=== PATIENT | male | born 1975 | race Caucasian/White ===

== ENCOUNTER 2016-05-19 17:37 | Emergency (ER) | payer SELFPAY ==
[~2016-05-19] VITALS: Ht 172.7 cm; Wt 90.7 kg
[2016-05-19 17:56] VITALS: BP 106/64
[2016-05-19] MEDS ORDERED: HYDR-4452 PO (18:01)
[2016-05-19] MEDS ORDERED: SILV1CRE TP (18:01)
[2016-05-19] MEDS ORDERED: ASPI81CT89 PO (18:01)
--- NOTE | 2016-05-19 18:01 | NUR ---
Patient to bed 05.
--- NOTE | 2016-05-19 18:15 | NUR ---
DR MARTINEZ ASSESSING AAO PT WITH AT BEDSIDE
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
[2016-05-19] MEDS ORDERED: NACL 0.9% 1,000 ML IV SCH (18:22)
[2016-05-19] MEDS ORDERED: cefTRIAXone 1,000 MG in DEXT 5% MINI-BAG PLUS 50 ML IV ONE (18:25)
[2016-05-19] MEDS ORDERED: VANCOMYCIN 1,000 MG in DEXTROSE 5% 250 ML IV ONE (18:25)
[2016-05-19] MEDS ORDERED: cefTRIAXone 1,000 MG VIAL ONE (18:42)
[2016-05-19] MEDS ORDERED: VANCOMYCIN 1,000 MG VIAL ONE (18:42)
[2016-05-19 18:55] LABS: BASOPHILS # (AUTO) 0.2 K/uL (0.00-0.22); BASOPHILS % (AUTO) 1.8 % (0.0-2.0); EOSINOPHILS # (AUTO) 0.2 K/uL (0-0.4); EOSINOPHILS % (AUTO) 1.8 % (0.0-4.0); HEMATOCRIT 48.7 % (36-52); HEMOGLOBIN 16.5 g/dL (12.0-18.0); LYMPHOCYTES # (AUTO) 1.8 K/uL (2.0-11.5); MEAN CORPUSCULAR HEMOGLOBIN 30 pg (27-31); MEAN CORPUSCULAR HGB CONC 34 g/dL (33-37); MEAN CORPUSCULAR VOLUME 87 fL (80-94); MONOCYTES # (AUTO) 0.6 K/uL (0.8-1.0); MONOCYTES % (AUTO) 5.7 % (1.7-9.3); NEUTROPHILS # (AUTO) 8.6 K/uL (1.8-7.7); NEUTROPHILS % (AUTO) 74.7 % (42.2-75.2); PLATELET COUNT (AUTO) 182 K/uL (140-450); RED BLOOD CELL COUNT(AUTO) 5.57 MIL/uL (4.20-6.10); RED CELL DISTRIBUTION WIDTH 11.8 % (11.6-13.7); WHITE BLOOD COUNT (AUTO) 11.4 K/uL (4.8-10.8)
--- NOTE | 2016-05-19 18:58 | NUR ---
REPORT GIVEN TO AUDRA GARCIA AT [facility]
[2016-05-19 19:05] LABS: ANION GAP 12.1 (8-16); CALCIUM 8.6 mg/dL (8.5-10.1); CREATININE 1.2 mg/dL (0.6-1.3); POTASSIUM 4.1 mmol/L (3.5-5.1)
[2016-05-19] MEDS ORDERED: HYDROmorphone 1 MG/ML AMP IVP ONE (19:05)
[2016-05-19] MEDS ORDERED: ONDANSETRON 4 MG/2 ML VIAL IVP ONE (19:05)
[2016-05-19 19:11] LABS: ALBUMIN 3.9 g/dL (3.4-5.0); TOTAL BILIRUBIN 0.4 mg/dL (0.0-1.0); TOTAL PROTEIN, SERUM 7.9 g/dL (6.4-8.2)
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
[2016-05-19 19:20] VITALS: BP 110/72
--- NOTE | 2016-05-19 19:20 | NUR ---
Patient Tranfers to outside Facility Physician: DR ESPINOZA Location:[facility]
--- NOTE | 2016-05-19 19:20 | NUR ---
VANCOMYCIN, ZOFRAN NOT GIVEN TRANSFERRED TO [place] [facility]IA [facility]
[2016-05-19 19:23] LABS: PARTIAL THROMBOPLASTIN TIME 20.5 secs (22-35.6); PROTHROMBIN TIME 9.9 secs (10.8-13.4)
[2016-05-19 19:44] LABS: CKMB RELATIVE INDEX 0.3 (0.0-2.5); CREATINE KINASE MB 1.2 ng/mL (0-3.6)
== END 2016-05-19 19:20 | disposition short-term general hospital (02) ==
LOC: MED 17:37
PROC: 3E033GC Introduction of Other Therapeutic Substance into Peripheral Vein, Percutaneous Approach (ICD-10-PCS; principal; 2016-05-19)
DX: Z48.89 Encounter for other specified surgical aftercare (principal); L03.115 Cellulitis of right lower limb; W40.8XXD Explosion of other specified explosive materials, subsequent encounter
CPT/HCPCS: 36415; 80053; 82550; 82553; 83605; 83874; 85025; 85610; 85730; 87040; 96365; 96375; 99285; J0696; J1170; J7030; J7060; J3370

== ENCOUNTER 2023-02-26 21:41 | Emergency (ER) | payer MEDICAID ==
[~2023-02-26] VITALS: Ht 175.3 cm; Wt 81.6 kg
[~2023-02-26 21:41] MED LIST: ASPI-1822 PO; HYDR-5191 PO; SILV-22 TP
[2023-02-26 22:56] VITALS: BP 114/57; PULSE 99; RESP 20; TEMP 100.7; O2SAT 98
[2023-02-27 00:20] LABS: FLU B ANTIGEN NEGATIVE (NEGATIVE)
[2023-02-27 00:21] LABS: FLU A ANTIGEN POSITIVE (NEGATIVE)
== END 2023-02-27 00:50 | disposition left against medical advice (07) ==
LOC: MED 21:41
DX: R05.9 Cough, unspecified (principal); R50.9 Fever, unspecified; R09.81 Nasal congestion; Z20.822 Contact with and (suspected) exposure to COVID-19; Z53.21 Procedure and treatment not carried out due to patient leaving prior to being seen by health care provider
CPT/HCPCS: 99281